=== PATIENT | male | born 1965 | race Caucasian/White ===

== ENCOUNTER → 2018-07-04 | Outpatient (CLI) | payer OTHER ==
--- NOTE | 2018-07-04 09:27 | RADIOLOGY REPORT (SQ) ---
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 TECHNIQUE: Axial imaging performed through the left shoulder with reformatted coronal and sagittal i maging windowed for bone and soft tissues. Images saved to PACS. 3D IMAGING: Were 3D images as MIP, SSD, or volume rendering performed at the work station? No. All CT scanners at this facility use dose modulation, iterative reconstruction, and/or weight based d osing when appropriate to reduce radiation dose to as low as reasonably achievable (ALARA). [facility]: Dose Right [facility]: CareDose [facility]: Dose Right [facility]: Teradose 4D [facility]: [employer] LIMITATIONS: None. RADIATION DOSE: CT Rad equipment meets quality standard of care and radiation dose reduction techniq ues were employed. CTDIvol: 17.5 mGy. DLP: 457 mGy-cm. mGy. FINDINGS: SOFT TISSUES: Joint effusion is suggested. No axillary adenopathy or mass. Left lung emma ar. BONES: Mildly comminuted fracture through the anterior inferior glenoid. There is a single screw pro jecting anteroposteriorly through the region which is broken in its mid aspect. The main glenoid fra gment containing the proximal aspect of the screw is inferiorly displaced. AC joint intact. No carlos oid subluxation. MINERALIZATION: Normal. OTHER: No other significant finding. IMPRESSION: 1. Previous open reduction internal fixation of anterior inferior glenoid fracture, pres umably with recurrent injury. Comminution with displaced fragments. TECHNICAL DOCUMENTATION: JOB ID: [id number] Quality ID # [id number]: Final reports with documentation of one or more dose reduction techniques (e.g., Au tomated exposure control, adjustment of the mA and/or kV according to patient size, use of iterative reconstruction technique) 2010 [employer]- All Rights Reserved Reading location - IP/workstation name: [email or web address]
== END ==
LOC: RAD 08:50
PROVIDERS: ATTEND Orthopaedic Surgery Sports Medicine
DX: S42.142A Displaced fracture of glenoid cavity of scapula, left shoulder, initial encounter for closed fracture (principal); X58.XXXA Exposure to other specified factors, initial encounter